=== PATIENT | male | born 1980 | race Caucasian/White ===

== ENCOUNTER 2016-11-28 17:27 | Emergency (ER) | payer OTHER ==
--- NOTE | 2016-11-28 20:39 | ED ---
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 States he injured his knee by dropping to his knee on the cement during the takedown. He notes 2/10 pain. At onset of the injury, pain was at 8/10. Denies swelling or bruising. Able to flex and extend without issues. Full range of motion in leg. denies numbness or tingling. - History of Current Complaint Chief Complaint: EDExtremityUpper Stated Complaint: RT ELBOW/RT KNEE INJURY Time Seen by Provider: 11/28/16 19:20 Hx Obtained From: Patient Mechanism Of Injury: Direct Blow Onset of Pain: Immediate Onset/Duration: Hours Severity Initially: Moderate Severity Currently: Mild Pain Intensity: 3 Pain Scale Used: 0-10 Numeric Timing: Intermittent Location: Is Discrete @ - patella Character Of Pain: Dull Associated Signs And Symptoms: Positive: Knee Pain Alleviating Factor(s): Rest Able to Bear Weight: Yes - Risk Factors Gout Risk Factors: Negative DVT Risk Factors: Negative - Allergies/Home Medications Allergies/Adverse Reactions: Allergies Allergy/AdvReac Type Severity Reaction Status Date / Time Pollen Extract Allergy Eyes Verified 11/28/16 17:34 Itchy/Swollen/Red/Watery PMH/Surg Hx/FS Hx/Imm Hx Previously Healthy: Yes Endocrine/Hematology History: Denies: Hx Anticoagulant Therapy Infectious Disease History: No Infectious Disease History: Denies: Traveled Outside the [place] in Last 30 Days - Social History Occupation: Employed Full-time Lives: With Family Alcohol Use: Occasionally Hx Substance Use: No Substance Use Type: Reports: None Hx Tobacco Use: No Smoking Status (MU): Light Every Day Tobacco Smoker Review of Systems Constitutional: Negative Cardiovascular: Negative Respiratory: Negative Positive: Arthralgia - right knee Skin: Negative Neurological: Negative Psychological: Normal All Other Systems Reviewed And Are Negative: Yes Physical Exam Triage Information Reviewed: Yes Vital Signs On Initial Exam: Initial Vitals Temp Pulse Resp BP Pulse Ox 98.2 F 76 16 127/75 100 11/28/16 17:34 11/28/16 17:34 11/28/16 17:34 11/28/16 17:34 11/28/16 17:34 Vital Signs Reviewed: Yes Appearance: Positive: Well-Appearing, No Pain Distress, Well-Nourished Skin: Positive: Warm, Skin Color Reflects Adequate Perfusion Head/Face: Positive: Normal Head/Face Inspection Eyes: Positive: Normal, EOMI, SEJAL ENT: Positive: Hearing grossly normal Neck: Positive: Supple, Nontender Respiratory/Lung Sounds: Positive: Clear to Auscultation, Breath Sounds Present Cardiovascular: Positive: Normal Musculoskeletal: Positive: Normal, Other - no abnormalities noted, Full range of motion in leg. Anterior drawer negative. Neurological: Positive: Normal, Speech Normal Psychiatric: Positive: Normal Diagnostics - Vital Signs Vital Signs Temp Pulse Resp BP Pulse Ox 11/28/16 19:28 72 14 126/75 98 11/28/16 17:34 98.2 F 76 16 127/75 100 - Laboratory Lab Statement: Any lab studies that have been ordered have been reviewed, and results considered in the medical decision making process. Lower Extremity Course/Dx - Course Course Of Treatment: Patient full ROM and without abnormalities. Patient arrives as a formality for work. Anterior drawer negative. Gait normal. No numbness or tingling. Will send home with precautions and ibuprofen. - Diagnoses Differential Diagnosis/HQI/PQRI: Positive: Contusion, Dislocation, Sprain, Strain Provider Diagnoses: Knee pain, acute Discharge - Discharge Plan Condition: Stable Disposition: HOME Patient Education Materials: Knee Pain (ED) Forms: *Work Release Referrals: No Primary Care Phys,NOPCP [Primary Care Provider] - Additional Instructions: Ibuprofen 600mg three times daily as needed for pain.
[2016-11-28 20:45] VITALS: BP 125/65
== END 2016-11-28 20:44 | disposition home or self-care (01) ==
LOC: ED 17:27
DX: M25.561 Pain in right knee (principal)
CPT/HCPCS: 99281

== ENCOUNTER 2018-10-15 07:49 | Emergency (ER) | payer BC, OTHER ==
[2018-10-15] MEDS ORDERED: NS 0.9% 1000 ML* 1,000 ML IV ONE (08:40)
[2018-10-15 08:55] LABS: ABS Basophils 0 10^3/ul (0-0.2); ABS Eosinophils 0 10^3/ul (0-0.6); ABS Lymphocytes 1.6 10^3/ul (1.0-4.8); ABS Monocytes 0.5 10^3/ul (0-0.8); ABS Neutrophils 4.1 10^3/ul (1.5-7.7); ABS Nucleated RBC 0 10^3/ul; Eosinophil % 0.3 %; Hematocrit 43 % (42-52); Hemoglobin 14.8 g/dl (14.0-18.0); Mean Corpuscular HGB Conc 34 g/dl (31-36); Mean Corpuscular Hemoglobin 30 pg (27-31); Mean Corpuscular Volume 86 fL (80-94); Mean Platelet Volume 7.2 fL (7.4-10.4); Nucleated Red Blood Cells % 0.1; Platelet Count 279 10^3/ul (150-450); Red Blood Count 5.02 10^6/ul (4.00-5.40); Red Cell Distribution Width 13 % (10.5-15); White Blood Count 6.3 10^3/ul (3.5-10.8)
[2018-10-15 09:29] LABS: EGFR Non-African American 93.9 (>60)
--- NOTE | 2018-10-15 09:37 | ED ---
Back Pain - HPI Summary HPI Summary: Patient presents with acute on chronic low back pain. He reports he was on the toilet yesterday and he bent forward too far and felt a pop in the left side of his lower back. This was followed by pain. Today when he was at work walking on concrete, he developed pain moving across to his right lower back. He reports he feels "fatigued" in his entire lower back and has pain with walking but denies lori pain with weightbearing. He has a burning sensation in his anterior thigh but denies weakness, numbness to either have his lower extremities and no incontinence of bowel or bladder, no saddle paresthesia. Pain is worse w/ lumbar flexion - drove himself here today. He admits to history of left lower back issues over the past 10 years with intermittent pain and spasm 3-4 times. He follows with [facility]. At his last visit was recommended he get an MRI however he improved with physical therapy so never had this imaging. Has had multiple XR's. He has not tried anything to alleviate his pain prior to arrival today. He reports he's had relief with steroids in the past and no relief with muscle relaxers as they only make him sleepy. Furthermore, he admits to dehydration as he's recently had diarrhea and his mouth is quite dry this morning. - History of Current Complaint Chief Complaint: EDBackInjuryPain Stated Complaint: BACK PAIN Time Seen by Provider: 10/15/18 08:02 Hx Obtained From: Patient Pain Intensity: 5 - Allergies/Home Medications Allergies/Adverse Reactions: Allergies Allergy/AdvReac Type Severity Reaction Status Date / Time pollen extracts Allergy Itching Verified 10/15/18 07:52 PMH/Surg Hx/FS Hx/Imm Hx Previously Healthy: Yes Endocrine/Hematology History: Denies: Hx Anticoagulant Therapy, Hx Blood Disorders, Hx Unexplained Bleeding Cardiovascular History: Denies: Hx Aneurysm History: Denies: Hx Acute Renal Failure, Hx Chronic Renal Failure, Hx Kidney Infection , Hx Kidney Stones Musculoskeletal History: Reports: Hx Back Problems - typically Lt Infectious Disease History: No Infectious Disease History: Denies: Traveled Outside the [place] in Last 30 Days - Family History Known Family History: Positive: None - Social History Occupation: Employed Full-time - [place] [employer] Lives: With Family - son Alcohol Use: Occasionally Hx Substance Use: No Substance Use Type: Reports: None Hx Tobacco Use: Yes Smoking Status (MU): Current Every Day Smoker Amount Used/How Often: 1/2 PPD Review of Systems Constitutional: Negative Negative: Fever, Chills, Fatigue Eyes: Negative ENT: Negative Cardiovascular: Negative Respiratory: Negative Gastrointestinal: Negative Genitourinary: Negative Positive: Arthralgia, Myalgia, Decreased ROM - d/t pain. Negative: Edema Skin: Negative Positive: Paresthesia - Rt thigh burning. Negative: Headache, Weakness, Numbness, Syncope, Slurred Speech Psychological: Other - concerned All Other Systems Reviewed And Are Negative: Yes Physical Exam Triage Information Reviewed: Yes Vital Signs On Initial Exam: Initial Vitals Temp Pulse Resp BP Pulse Ox 97.6 F 91 14 147/85 95 10/15/18 07:52 10/15/18 07:52 10/15/18 07:52 10/15/18 07:52 10/15/18 07:52 Vital Signs Reviewed: Yes Appearance: Positive: Well-Appearing, Well-Nourished, Pain Distress - moderate - sitting upright in chair - slow to transition from sitting to standing but is able to do so as well as ambulate w/o assistance Skin: Positive: Warm, Skin Color Reflects Adequate Perfusion, Dry Head/Face: Positive: Normal Head/Face Inspection Eyes: Positive: EOMI ENT: Positive: Hearing grossly normal, Pharynx normal - mucosa somewhat dry Neck: Positive: Supple, Nontender Respiratory/Lung Sounds: Positive: Breath Sounds Present Cardiovascular: Positive: Normal. Negative: Leg Edema Left, Leg Edema Right Abdomen Description: Positive: Nontender, No Organomegaly, Soft Musculoskeletal: Positive: Strength/ROM Intact, Pain @ - reports LBP w/ B/L SLR (minor) Neurological: Positive: Alert, Oriented to Person Place, Time, CN Intact II-III , Reflexes Intact. Negative: Sensory/Motor Intact - motor equal B/L however reports decrease sensation in Rt lateral thigh and instep compared to Lt Psychiatric: Positive: Anxious Diagnostics - Vital Signs Vital Signs Temp Pulse Resp BP Pulse Ox 10/15/18 07:52 97.6 F 91 14 147/85 95 - Laboratory Lab Results: Lab Results 10/15/18 10/15/18 10/15/18 Range/Units 08:44 08:44 08:44 WBC 6.3 (3.5-10.8) 10^3/ul RBC 5.02 (4.00-5.40) 10^6/ul Hgb 14.8 (14.0-18.0) g/dl Hct 43 (42-52) % MCV 86 (80-94) fL MCH 30 (27-31) pg MCHC 34 (31-36) g/dl RDW 13 (10.5-15) % Plt Count 279 (150-450) 10^3/ul MPV 7.2 L (7.4-10.4) fL Neut % (Auto) 64.8 % Lymph % (Auto) 26.0 % [place] % (Auto) 8.5 % Eos % (Auto) 0.3 % Baso % (Auto) 0.4 % Absolute Neuts (auto) 4.1 (1.5-7.7) 10^3/ul Absolute Lymphs (auto) 1.6 (1.0-4.8) 10^3/ul Absolute Monos (auto) 0.5 (0-0.8) 10^3/ul Absolute Eos (auto) 0 (0-0.6) 10^3/ul Absolute Basos (auto) 0 (0-0.2) 10^3/ul Absolute Nucleated RBC 0 10^3/ul Nucleated RBC % 0.1 Sodium 139 (135-145) mmol/L Potassium 4.0 (3.5-5.0) mmol/L Chloride 108 (101-111) mmol/L Carbon Dioxide 23 (22-32) mmol/L Anion Gap 8 (2-11) mmol/L BUN 17 (6-24) mg/dL Creatinine 0.90 (0.67-1.17) mg/dL Est GFR ( Amer) 113.7 (>60) Est GFR (Non-Af Amer) 93.9 (>60) BUN/Creatinine Ratio 18.9 (8-20) Glucose 99 (70-100) mg/dL Lactic Acid 0.7 (0.5-2.0) mmol/L Calcium 9.6 (8.6-10.3) mg/dL Magnesium 2.1 (1.9-2.7) mg/dL Total Bilirubin 0.40 (0.2-1.0) mg/dL AST 20 (13-39) U/L ALT 21 (7-52) U/L Alkaline Phosphatase 61 (34-104) U/L C-Reactive Protein 6.53 (<8.01) mg/L Total Protein 7.1 (6.4-8.9) g/dL Albumin 4.5 (3.2-5.2) g/dL Globulin 2.6 (2-4) g/dL Albumin/Globulin Ratio 1.7 (1-3) Result Diagrams: 10/15/18 08:44 10/15/18 08:44 Lab Statement: Any lab studies that have been ordered have been reviewed, and results considered in the medical decision making process. Back Pain Course/Dx - Course Course Of Treatment: Labs: WNL - no signs of dehydration. Explained he needs to have close f/u w/ orthopedic group or [facility] to release him back to work w/o restrictions. Reviewed danger s/sx of when to return to ED. He is aware and agrees w/ plan. - Diagnoses Provider Diagnoses: Lumbar radiculopathy Discharge - Sign-Out/Discharge Documenting (check all that apply): Patient Departure - Discharge Plan Condition: Stable Disposition: HOME Prescriptions: Naproxen [Naproxen 500 mg tab] 500 mg PO BID #10 tablet predniSONE TAB* [Deltasone 20 MG TAB*] 40 mg PO DAILY #8 tab Patient Education Materials: Lumbar Radiculopathy (ED) Forms: *Work Release Referrals: [facility] [Outside] Judit GUAN,Dwain [Medical Doctor] - Additional Instructions: Rest Stay hydrated Alternate heat and ice w/ gentle stretching but avoid overstretching, painful movements such as bending, lifting, twisting, etc Take medications as directed - you may take extra strength tylenol for breakthrough pain Follow-up with orthopedics this week to reassess your ability to return to work full capacity vs. needing ongoing restriction. These have been made for your safety and the saferty of your co-workers, etc. Call Wednesday to schedule an appointment. If they cannot see you sooner, follow-up with [facility], a local PCP. Contact information provided for you here. *If you develop numbness, weakness or change in bowel/bladder habits, return to the nearest ED - Billing Disposition and Condition Condition: STABLE Disposition: Home
[2018-10-15] MEDS ORDERED: Ketorolac INJ* 30 MG/ML 1 ML VIAL IV PUSH ONE (09:40)
[2018-10-15] MEDS ORDERED: Dexamethasone IV* 4 MG/ML 5 ML VIAL (20 MG) IVPB ONE (09:40)
[2018-10-15 10:12] VITALS: BP 128/74
== END 2018-10-15 10:11 | disposition home or self-care (01) ==
LOC: ED 07:49
DX: M54.16 Radiculopathy, lumbar region (principal); M54.5 Low back pain; G89.29 Other chronic pain; F17.210 Nicotine dependence, cigarettes, uncomplicated
CPT/HCPCS: 36415; 80053; 83605; 83735; 85025; 86140; 96374; 96375; 99282; J1100; J1885